=== PATIENT | female | born 1995 | race Caucasian/White ===

== ENCOUNTER 2017-01-02 06:43 | Emergency (ER) | payer OTHER ==
[~2017-01-02] VITALS: Ht 157.5 cm; Wt 60.0 kg
[~2017-01-02 06:43] MED LIST: CIPROFLOXACN500 MG PO; IBUPROFEN600 MG PO; NAPROSYN500 MG PO; PRE-NATAL PO; ZOFRAN ODT4 MG PO
[2017-01-02] MEDS ORDERED: NAPROSYN500 MG PO (07:49)
[2017-01-02 08:06] VITALS: BP 106/70
== END 2017-01-02 08:24 | disposition home or self-care (01) | DRG 563 ==
LOC: ED 06:43
DX: S93.401A Sprain of unspecified ligament of right ankle, initial encounter (principal); F17.210 Nicotine dependence, cigarettes, uncomplicated; S63.502A Unspecified sprain of left wrist, initial encounter; S63.501A Unspecified sprain of right wrist, initial encounter; W10.9XXA Fall (on) (from) unspecified stairs and steps, initial encounter; Y92.009 Unspecified place in unspecified non-institutional (private) residence as the place of occurrence of the external cause

== ENCOUNTER 2017-01-16 17:36 | Emergency (ER) | payer OTHER ==
[~2017-01-16] VITALS: Ht 157.5 cm; Wt 62.0 kg
[2017-01-16 18:18] VITALS: BP 99/66
[2017-01-16] MEDS ORDERED: MOTRIN800 MG PO (18:23)
[2017-01-16] MEDS ORDERED: BACTRIM DS1 TAB PO (18:23)
[2017-01-16] MEDS ORDERED: TRAMADOL HYDROC50 MG PO (18:23)
== END 2017-01-16 18:33 | disposition home or self-care (01) | DRG 601 ==
LOC: ED 17:36
PROC: 0H9TXZZ (ICD-10-PCS; principal; 2017-01-16)
DX: N61.1 Abscess of the breast and nipple (principal)

== ENCOUNTER 2017-01-17 12:01 | Emergency (ER) | payer OTHER ==
[~2017-01-17] VITALS: Ht 157.5 cm; Wt 61.0 kg
[2017-01-17 12:01] VITALS: BP 106/73
[~2017-01-17 12:01] MED LIST changes: +BACTRIM DS1 TAB PO; +MOTRIN800 MG PO; +TRAMADOL HYDROC50 MG PO
== END 2017-01-17 13:12 | disposition home or self-care (01) | DRG 601 ==
LOC: ED 12:01
DX: N61.1 Abscess of the breast and nipple (principal); B95.5 Unspecified streptococcus as the cause of diseases classified elsewhere; F17.210 Nicotine dependence, cigarettes, uncomplicated

== ENCOUNTER 2017-11-05 15:26 | Emergency (ER) | payer OTHER ==
[~2017-11-05] VITALS: Ht 157.5 cm; Wt 60.0 kg
[2017-11-05 16:01] VITALS: BP 102/71
== END 2017-11-05 16:11 | disposition home or self-care (01) | DRG 313 ==
LOC: ED 15:26
DX: R07.89 Other chest pain (principal); F17.290 Nicotine dependence, other tobacco product, uncomplicated

== ENCOUNTER 2018-10-31 11:53 | Emergency (ER) | payer MEDICAID ==
[~2018-10-31] VITALS: Ht 157.5 cm; Wt 50.0 kg
[2018-10-31 13:19] LABS: IMMATURE GRANULOCYTES 0.4 % (0.0-5.0); MEAN CELL VOLUME 100.5 fL CALC (80.0-100.0); MEAN CORPUSCULAR HGB 32.6 pG CALC (26.0-32.0); MEAN CORPUSCULAR HGB CONC 32.5 g/L CALC (32.0-36.0); NEUT# 2.77 thou/uL (2.00-7.15); RED BLOOD COUNT 3.86 mill/uL (4.20-5.60); RED CELL DISTRI WIDTH 13.6 % (11.5-15.5)
[2018-10-31 13:21] LABS: HEMATOCRIT 38.8 % (37.0-47.0); HEMOGLOBIN 12.6 g/dl (12.0-16.0)
[2018-10-31 14:50] LABS: ALBUMIN 4.4 g/dL (3.2-5.0); ANION GAP 13 (6-22 (CALC)); BILIRUBIN, TOTAL 0.4 mg/dL (0.0-1.4); BUN 11 mg/dL (7-17); BUN/CREATININE RATIO 19 (12-20 (CALC)); CARBON DIOXIDE 25 mmol/l (22-30); CHLORIDE 109 mmol/l (95-108); CREATININE 0.6 mg/dL (0.5-1.0); GFR > 60 ML/MIN (>=60 (CALC)); GFR FOR AFR.AMER. > 60 ML/MIN (>=60 (CALC)); POTASSIUM 4.5 mmol/l (3.5-5.1); SGOT/AST 26 u/l (14-36); SODIUM 143 mmol/l (137-146); TOTAL PROTEIN 7.8 g/dL (6.3-8.2)
[2018-10-31 14:54] LABS: ALKALINE PHOSPHATASE 76 u/l (38-126)
[2018-10-31 21:40] VITALS: BP 108/67
== END 2018-10-31 21:40 ==
LOC: ED 11:53
PROVIDERS: Emergency Medicine
DX: N93.8 Other specified abnormal uterine and vaginal bleeding (principal); R19.00 Intra-abdominal and pelvic swelling, mass and lump, unspecified site
CPT/HCPCS: Q9967

== ENCOUNTER 2019-06-04 | Emergency (ER) | payer MEDICAID ==
[2019-06-04] MEDS ORDERED: PRENATA3 PO (10:58)
[2019-06-04 11:57] LABS: URINE BILIRUBIN - DIPSTICK NEGATIVE (NEGATIVE); URINE BLOOD DIPSTICK NEGATIVE (NEGATIVE); URINE COLOR YELLOW; URINE GLUCOSE - DIPSTICK NEGATIVE (NEGATIVE); URINE KETONE NEGATIVE (NEGATIVE); URINE LEUK ESTERASE NEGATIVE (NEGATIVE); URINE NITRITE - DIPSTICK NEGATIVE (Negative); URINE PH 7.5 (4.5-8.0); URINE PROTEIN - DIPSTICK NEGATIVE (NEG-TRACE); URINE SPECIFIC GRAVITY 1.015; URINE UROBILINOGEN - DIPSTICK 0.2 E.U./dL (0.2)
[2019-06-04] MEDS ORDERED: AMOXICILLIN500 M2 PO (12:04)
== END 2019-06-04 12:15 | disposition home or self-care (01) | DRG 833 ==
PROVIDERS: Family Medicine
DX: O99.519 Diseases of the respiratory system complicating pregnancy, unspecified trimester (principal); J02.9 Acute pharyngitis, unspecified; O99.333 Smoking (tobacco) complicating pregnancy, third trimester; F17.210 Nicotine dependence, cigarettes, uncomplicated; Z3A.00 Weeks of gestation of pregnancy not specified

== ENCOUNTER 2019-06-21 | Emergency (ER) | payer MEDICAID ==
[~2019-06-21] MED LIST changes: +AMOXICILLIN500 M2 PO; +PRENATA3 PO
[2019-06-21] MEDS ORDERED: PRE-NATAL PO (17:01)
[2019-06-21] MEDS ORDERED: ZPAK PO (17:51)
== END 2019-06-21 17:55 | disposition home or self-care (01) ==
DX: O99.511 Diseases of the respiratory system complicating pregnancy, first trimester (principal); J06.9 Acute upper respiratory infection, unspecified; O99.331 Smoking (tobacco) complicating pregnancy, first trimester; F17.200 Nicotine dependence, unspecified, uncomplicated; Z3A.13 13 weeks gestation of pregnancy

== ENCOUNTER 2021-01-02 12:04 | Emergency (ER) | payer OTHER, MEDICAID ==
[~2021-01-02 12:04] MED LIST changes: +ZPAK PO
[2021-01-02] MEDS ORDERED: BIRTH CONTROL (13:05)
[2021-01-02 13:45] VITALS: BP 105/63
== END 2021-01-02 13:45 | disposition home or self-care (01) | DRG 556 ==
LOC: ED 12:04
DX: M25.512 Pain in left shoulder (principal); F17.210 Nicotine dependence, cigarettes, uncomplicated; V49.40XA Driver injured in collision with unspecified motor vehicles in traffic accident, initial encounter